=== PATIENT | male | born 1995 | race African-American/Black ===

== ENCOUNTER 2018-12-02 09:22 | Emergency (ER) | payer BC ==
--- NOTE | 2018-12-02 09:37 | EDPHY ---
H & P Time Seen by Provider: 12/02/18 09:29 HPI/ROS: CHIEF COMPLAINT: Left tibia pain HISTORY OF PRESENT ILLNESS: 23-year-old male was snowboarding yesterday when he accidentally impacted his left tibia into a tree. He is able to bear weight albeit with pain. He sustained an abrasion. He has reproducible pain with weight-bearing however is able to bear weight. No pain with dorsiflexion plantar flexion. No knee pain. No genital pain. No hip pain. No femur pain. Tetanus up-to-date PHYSICAL EXAM (Prior to examination, patient consented to physical exam, hands were washed and my usual and customary physical exam procedures followed) 1) GENERAL: Well-developed, well-nourished, alert and oriented. Appears to be in no acute distress. 2) HEAD: Normocephalic 3) HEENT: Pupils equal, round, reactive to light bilaterally. 4) LUNGS: Breathing comfortably. 5) MUSCULOSKELETAL: Tender to palpation left pretibial region was noted abrasion. proximal tibia and fibula nontender .5th MT nontender negative [place] test, compartments soft. Dorsiflexion plantar flexion distally do not elicit proximal pain. Ankle, foot, knee, femur, hip nontender. 6) SKIN: Abrasion left pretibial region 7) VASCULAR: DP,PT pulses and cap refill present and brisk DIFFERENTIAL DIAGNOSIS: in no particular order including but not limited to fracture, sprain, compartment syndrome Xray of the interpreted by myself: no definitive acute osseous abnormality Procedure: Crutches indications for crutch use discussed with patient. Patient fitted for crutches by ER staff. Observed ambulating with crutches. I think the patient has the capacity to safely use crutches. Usual and customary crutch walking precautions provided Procedure: Splint A michael boot splint was applied by ER forestry technician. After application of the splint I returned and re-examined the patient. The splint was adequately immobilizing the joint and distal to the splint the patient's circulation and sensation were intact. Patient shows no signs of compartment syndrome. Was given orthopedic precautions. Smoking Status: Never smoked Constitutional: Initial Vital Signs Temperature (C) 36.6 C 12/02/18 09:26 Heart Rate 94 12/02/18 09:26 Respiratory Rate 16 12/02/18 09:26 Blood Pressure 113/72 12/02/18 09:26 O2 Sat (%) 99 12/02/18 09:26 O2 Delivery Mode Room Air Allergies/Adverse Reactions: No Known Allergies Allergy (Unverified 12/02/18 09:25) Home Medications: Medication Instructions Recorded NK [No Known Home Meds] 12/02/18 MDM/Departure - MDM Imaging Results: Imaging Impressions Tibia/Fibula X-Ray 12/02/18 09:35 Impression: 1. Negative left tibia/fibula radiographs. Images reviewed myself ED Course/Re-evaluation: Care of patient under supervision of secondary supervising physician Dr Toro . Re-evaluation with serial exams. Soft compartments. Neurovascular intact. Doubt compartment syndrome. Given my usual and customary orthopedic precautions instructions and orthopedic follow-up information. Informed that occult fracture is not ruled out. Informed of the limitations of x-ray. He feels comfortable being discharged. - Depart Disposition: Home, Routine, Self-Care Clinical Impression: Injury of left leg Qualifiers: Encounter type: initial encounter Qualified Code(s): S89.92XA - Unspecified injury of left lower leg, initial encounter Snowboarding accident Qualifiers: Encounter type: initial encounter Qualified Code(s): V00.318A - Other snowboard accident, initial encounter Condition: Good Instructions: Crush Injury (ED) Additional Instructions: Return to the ER immediately if you experience discoloration, have worsening pain, numbness, tingling, or any other symptoms that concern you. If you received x-rays in the emergency department today, be advised, that ligamentous , tendon, muscular, and other non-bony injury cannot be fully ruled out. Try to keep your affected extremity elevated above the level of your chest, and keep cold packs on the affected area, for the next 48 hours. Referrals: Padilla Forrest MD [Medical Doctor] - 2-3 days, call for appt.
[2018-12-02 10:39] VITALS: BP 119/84
== END 2018-12-02 10:39 | disposition home or self-care (01) ==
DX: S89.92XA Unspecified injury of left lower leg, initial encounter (principal); V00.312A Snowboarder colliding with stationary object, initial encounter; Y93.23 Activity, snow (alpine) (downhill) skiing, snowboarding, sledding, tobogganing and snow tubing; Y92.828 Other wilderness area as the place of occurrence of the external cause